=== PATIENT | male | born 1990 | race Caucasian/White ===

== ENCOUNTER 2019-06-17 09:28 | Emergency (ER) | payer OTHER ==
[~2019-06-17] VITALS: Ht 200.7 cm; Wt 159.1 kg
[2019-06-17 09:35] VITALS: Ht 200.7 cm; Wt 159.1 kg
[2019-06-17 10:00] LABS: BASOPHILS 0.6 % (0-2); HEMATOCRIT 49.9 % (42.0-54.0); HEMOGLOBIN 17.1 g/dL (13.5-17.5); IMMATURE GRANULOCYTES 0.1 % (0-5); MCH 34.5 pg (26.0-34.0); MCHC 34.3 g/dL (31.0-37.0); MCV 100.6 fL (80.0-100.0); MONOCYTES 12.2 % (2-11); NEUTROPHILS 50.1 % (40-80); PLATELET COUNT 301 10x3/uL (130-400); RBC 4.96 10x6/uL (4.20-6.10); RDW 12.9 % (11.5-14.5); WBC 7.9 10x3/uL (4.8-10.8)
[2019-06-17 10:07] LABS: APTT 24.8 SECONDS (22.8-39.4); INR 0.93 (0.85-1.17); PROTIME 12.4 SECONDS (11.6-15.0)
[2019-06-17 10:16] LABS: CALC OSMOLALITY 278 mosm/kg (275-300); CALCIUM 9.2 mg/dL (8.5-10.1); CARBON DIOXIDE 24.5 mmol/L (21.0-32.0); CHLORIDE - SERUM 106 mmol/L (98-107); CREATININE - SERUM 1.2 mg/dL (0.6-1.3); GLUCOSE 114 mg/dL (74-106); POTASSIUM - SERUM 4.7 mmol/L (3.5-5.1); SODIUM 140 mmol/L (136-145); UREA NITROGEN 11 mg/dL (7-18); eGFR NON AFRICAN AMERICAN 76 mL/min (90-120)
[2019-06-17 10:29] LABS: ALBUMIN 3.8 g/dL (3.4-5.0); ALKALINE PHOSPHATASE 80 U/L (30-120); ALT (SGPT) 76 U/L (10-68); BILIRUBIN - TOTAL 0.28 mg/dL (0.2-1.3); CKMB 3.4 U/L (0.0-3.6); CREATINE KINASE 528 UL (21-232); MAGNESIUM - SERUM 1.7 mg/dL (1.8-2.4); PROTEIN - SERUM 7.1 g/dL (6.4-8.2)
[2019-06-17 10:30] LABS: TROPONIN-I < 0.017 ng/mL (0.000-0.060)
[2019-06-17 11:30] VITALS: BP 142/86
== END 2019-06-17 11:35 | disposition home or self-care (01) ==
LOC: D.ER 09:28
PROVIDERS: Family Medicine
DX: F41.9 Anxiety disorder, unspecified (principal); R00.2 Palpitations